=== PATIENT | male | born 1950 | race Caucasian/White ===

== ENCOUNTER 2016-09-17 11:36 | Emergency (ER) | payer OTHER ==
--- NOTE | 2016-09-17 12:07 | EDM.PDOC ---
<Monica Taylor - Last Filed: 09/17/16 13:23> ED HPI GENERAL MEDICAL PROBLEM - General Chief Complaint: Back Pain or Injury Stated Complaint: LEFT CHEST PAIN Time Seen by Provider: 09/17/16 12:07 Source of Information: Reports: Patient, Family History Limitations: Reports: Intoxication - History of Present Illness INITIAL COMMENTS - FREE TEXT/NARRATIVE: pt arrived with pain in the left shoulder. He is not having chest pain. He states this started very suddenly. He has not been sob. Onset: Today Duration: Hour(s):, Other ( sarted suddenly. ) Location: Reports: Other ( left shoulder blade area. ) Quality: Reports: Stabbing, Throbbing Severity: Moderate Associated Symptoms: Reports: Other ( left shoulder pain. ) Left Upper Back Pain Score (Numeric/FACES): 5 - Related Data Allergies Allergy/AdvReac Type Severity Reaction Status Date / Time gemfibrozil Allergy Unknown Rash Verified 09/17/16 11:57 niacin Allergy Unknown Rash Verified 09/17/16 11:57 [From Niaspan Extended-Release] hexachlorophene Allergy Rash Verified 09/17/16 11:57 [Hexachlorophene] oxycodone [Oxycodone] AdvReac Intermediate Vomiting Verified 09/17/16 11:57 codeine AdvReac Vomiting Verified 09/17/16 11:57 monosodium glutamate AdvReac Renal Verified 09/17/16 11:57 Failure Home Meds: Home Meds Allopurinol [Zyloprim] 300 mg PO BEDTIME 02/03/13 [History] Hypromellose [Gonak] 1 drop OP ASDIRECTED PRN 02/03/13 [History] Methimazole 2.5 mg PO BEDTIME 02/03/13 [History] [place]-3 Fatty Acids [Fish Oil] 1,000 mg PO BID 02/03/13 [History] Pantoprazole [Protonix] 40 mg PO DAILY 02/03/13 [History] traZODone HCl [Trazodone HCl] 300 mg PO BEDTIME 02/03/13 [History] Lutein 6 mg PO DAILY 11/24/13 [History] Hydrocodone/Acetaminophen [Hydrocodone-Acetaminophen 5-325] 1 each PO Q4HR PRN 11/30/13 [History] Terazosin HCl [Terazosin] 5 mg PO BEDTIME 11/30/13 [History] Ubidecarenone [Coenzyme Q10] 100 mg PO DAILY 07/27/14 [History] Acetaminophen [Tylenol] 625 mg PO BID 09/17/16 [History] Ondansetron [Zofran ODT] 4 mg PO DAILY 09/17/16 [History] Venlafaxine [Effexor] 75 mg PO DAILY 09/17/16 [History] Past Medical History Other Respiratory History: chronic sinusitis Other Genitourinary History: Stage 3 kidney disease Other Musculoskeletal History: arthritis of spine, dislocation of shoulder Other Neuro History: TBI 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 - Past Surgical History Other HEENT Surgeries/Procedures: metal in eyes Other GI Surgeries/Procedures: whipple procedure. Social & Family History - Tobacco Use Smoking Status *Q: Heavy Tobacco Smoker Years of Tobacco use: 50 Second Hand Smoke Exposure: Yes - Alcohol Use Days Per Week of Alcohol Use: 0 - Recreational Drug Use Recreational Drug Use: Yes Drug Use in Last 12 Months: Yes Recreational Drug Type: Reports: Marijuana/Hashish Recreational Drug Use Frequency: Weekly ED ROS GENERAL - Review of Systems Review Of Systems: See Below Constitutional: Reports: No Symptoms HEENT: Reports: No Symptoms Respiratory: Reports: No Symptoms, Pleuritic Chest Pain, Other (pt hurts back by the shoulder when she takes a deep breath. ) Cardiovascular: Reports: Other ( left shoulder pain. ) Endocrine: Reports: No Symptoms GI/Abdominal: Reports: Other ( left shoulder pain. ) : Reports: No Symptoms Musculoskeletal: Reports: Other (pt is very tender by the left [place] area. It appears to be below the shoulder blade. Pt has had a previous whipple. ) Skin: Reports: No Symptoms ED EXAM, UPPER BACK/NECK PAIN - Physical Exam Exam: See Below Text/Narrative:: Pt arrived having acute pain below the left shoulder blade. He hurts when he takes a deep breath. Exam Limited By: No Limitations General Appearance: Alert, Anxious, Moderate Distress Nose Exam: Normal Inspection Throat/Mouth Exam: Normal Inspection Head Exam: Atraumatic Neck Exam: Non-Tender Cardiovascular/Respiratory: Regular Rate, Rhythm GI/Abdominal: Soft, Non-Tender (Male) Exam: Deferred Rectal (Males) Exam: Deferred Extremities: Normal Capillary Refill Neurologic: Alert Psychiatric: Normal Affect Course - Vital Signs Last Recorded V/S: Last Vital Signs Temp 36.9 C 09/17/16 11:50 Pulse 69 09/17/16 13:52 Resp 16 09/17/16 13:52 BP 137/87 09/17/16 13:52 Pulse Ox 96 09/17/16 13:52 - Orders/Labs/Meds Labs: Laboratory Tests 09/17/16 09/17/16 09/17/16 Range/Units 11:49 11:49 11:49 WBC 9.3 (4.5-11.0) K/uL RBC 5.16 (4.30-5.90) M/uL Hgb 16.1 H D (12.0-15.0) g/dL Hct 46.2 (40.0-54.0) % MCV 90 (80-98) fL MCH 31 (27-31) pg MCHC 35 (32-36) % Plt Count 229 (150-400) K/uL Neut % (Auto) 68 H (36-66) % Lymph % (Auto) 21 L (24-44) % [place] % (Auto) 8 H (2-6) % Eos % (Auto) 2 (2-4) % Baso % (Auto) 1 (0-1) % Sodium 139 L (140-148) mmol/L Potassium 3.8 (3.6-5.2) mmol/L Chloride 103 (100-108) mmol/L Carbon Dioxide 30 (21-32) mmol/L Anion Gap 9.8 (5.0-14.0) mmol/L BUN 42 H (7-18) mg/dL Creatinine 2.1 H (0.8-1.3) mg/dL Est Cr Clr Drug Dosing 35.73 mL/min Estimated GFR (MDRD) 32 L (>60) Glucose 101 (74-106) mg/dL Calcium 8.3 L (8.5-10.1) mg/dL Total Bilirubin 0.3 (0.2-1.0) mg/dL AST 16 (15-37) U/L ALT 21 (12-78) U/L Alkaline Phosphatase 88 (46-116) U/L Creatine Kinase 74 (39-308) U/L Troponin I < 0.017 (0.000-0.056) ng/mL Total Protein 7.4 (6.4-8.2) g/dL Albumin 3.4 (3.4-5.0) g/dL Globulin 4.0 H (2.3-3.5) g/dL Albumin/Globulin Ratio 0.9 L (1.2-2.2) Lipase (73-393) U/L 05//17 Range/Units 12:35 WBC (4.5-11.0) K/uL RBC (4.30-5.90) M/uL Hgb (12.0-15.0) g/dL Hct (40.0-54.0) % MCV (80-98) fL MCH (27-31) pg MCHC (32-36) % Plt Count (150-400) K/uL Neut % (Auto) (36-66) % Lymph % (Auto) (24-44) % [place] % (Auto) (2-6) % Eos % (Auto) (2-4) % Baso % (Auto) (0-1) % Sodium (140-148) mmol/L Potassium (3.6-5.2) mmol/L Chloride (100-108) mmol/L Carbon Dioxide (21-32) mmol/L Anion Gap (5.0-14.0) mmol/L BUN (7-18) mg/dL Creatinine (0.8-1.3) mg/dL Est Cr Clr Drug Dosing mL/min Estimated GFR (MDRD) (>60) Glucose (74-106) mg/dL Calcium (8.5-10.1) mg/dL Total Bilirubin (0.2-1.0) mg/dL AST (15-37) U/L ALT (12-78) U/L Alkaline Phosphatase (46-116) U/L Creatine Kinase (39-308) U/L Troponin I (0.000-0.056) ng/mL Total Protein (6.4-8.2) g/dL Albumin (3.4-5.0) g/dL Globulin (2.3-3.5) g/dL Albumin/Globulin Ratio (1.2-2.2) Lipase 106 (73-393) U/L Meds: Medications Discontinued Medications Generic Name Dose Route Start Last Admin Trade Name Freq PRN Reason Stop Dose Admin Aspirin 324 mg 05/25/17 12:14 09/17/16 12:35 Aspirin PO 09/17/16 12:15 324 mg ONETIME ONE Administration Cyclobenzaprine HCl 10 mg 09/17/16 12:37 09/17/16 12:45 Flexeril PO 09/17/16 12:38 10 mg ONETIME ONE Administration Hydromorphone HCl 0.5 mg 09/17/16 12:39 09/17/16 12:46 Dilaudid IVPUSH 09/17/16 12:40 0.5 mg ONETIME ONE Administration - Re-Assessments/Exams Free Text/Narrative Re-Assessment/Exam: 09/17/16 13:23 pt has a right bundle branch block which is not new. His cardiac enzymes were normal. He has borderline kidney funtion which is not new. pt is feeling better after some pain meds. chest xray is unchanged. Departure - Departure Time of Disposition: 13:26 Disposition: Home, Self-Care 01 Condition: fair Clinical Impression: Pain aggravated by breathing - Discharge Information Referrals: PCP,None [Primary Care Provider] - Forms: ED Department Discharge Care Plan Goals: ice to the muscle area for 48 hours then moist heat, avoid pulling and lifting, flexeril 10 mg hs, norco 5/325 q6h prn for. Rtc if pain should change. <Malini Alexis - Last Filed: 09/18/16 14:50> ED Communication - Conversation Summary Radiology Reading Discussed with Radiologist: Yes Summary Comment: Radiology called to discuss right sided lung nodule on X-ray from 09/17. 10 mm in size. Recommend non-urgent follow up chest CT. I discussed this with Nura today. He will f/u at the [facility] for this. He was informed the [facility] can request his records from yesterday's visit for review. Patient reports he is feeling "much better" today. Malini Alexis, C D [employer], [employer]
[2016-09-17] MEDS ORDERED: Aspirin 81 MG Tab.Chew PO ONE (12:14)
[2016-09-17] MEDS ORDERED: Cyclobenzaprine 10 MG Tab PO ONE (12:37)
[2016-09-17] MEDS ORDERED: HYDROmorphone 0.5 MG/0.5 ML Syringe IVPUSH ONE (12:39)
--- NOTE | 2016-09-17 13:30 | CR ---
Heart size within normal limits. No focal consolidation. Nodular density within the right lung base. This is up to 10 mm. Recommend a nonurgent CT follow-up to exclude a nodule.
[2016-09-17 13:54] VITALS: BP 137/87
== END 2016-09-17 13:54 | disposition home or self-care (01) ==
LOC: JP.ED 11:36
DX: M25.512 Pain in left shoulder (principal); F17.200 Nicotine dependence, unspecified, uncomplicated; E11.9 Type 2 diabetes mellitus without complications; Z98.890 Other specified postprocedural states; Z88.8 Allergy status to other drugs, medicaments and biological substances; Z88.6 Allergy status to analgesic agent
CPT/HCPCS: 36415; 71010; 80053; 82550; 83690; 84484; 85025; 93005; 96374; 99284; A9270; J1170; 93010

== ENCOUNTER 2017-09-10 14:49 | Emergency (ER) | payer OTHER ==
[2017-09-10 15:19] VITALS: BP 134/77
--- NOTE | 2017-09-10 15:58 | EDM.PDOC ---
ED HPI GENERAL MEDICAL PROBLEM - General Chief Complaint: ENT Problem Stated Complaint: HEARING LOSS ALL OF A SUDDEN Time Seen by Provider: 09/10/17 15:45 Source of Information: Reports: Patient History Limitations: Reports: No Limitations - History of Present Illness INITIAL COMMENTS - FREE TEXT/NARRATIVE: 66 [place] patient presents with decreased hearing in his L ear. Has chronic hearing impairment anyway. Now since last night it is worse. He denies pain. Onset Date: 09/09/17 Duration: Hour(s):, Constant Location: Reports: Face (L ear) Quality: Reports: Other (no pain) Severity: Moderate Improves with: Reports: None Worsens with: Reports: None Context: Reports: Other (Has chronic bilat hearing impairment) Associated Symptoms: Reports: Other (slight dizziness) Treatments [employer] CHEF: Reports: Other (see below) (none) - Related Data Allergies Allergy/AdvReac Type Severity Reaction Status Date / Time gemfibrozil Allergy Unknown Rash Verified 09/17/16 11:57 niacin Allergy Unknown Rash Verified 09/17/16 11:57 [From Niaspan Extended-Release] hexachlorophene Allergy Rash Verified 09/17/16 11:57 [Hexachlorophene] oxycodone [Oxycodone] AdvReac Intermediate Vomiting Verified 09/17/16 11:57 codeine AdvReac Vomiting Verified 09/17/16 11:57 monosodium glutamate AdvReac Renal Verified 09/17/16 11:57 Failure Home Meds: Home Meds Allopurinol [Zyloprim] 300 mg PO BEDTIME 02/03/13 [History] Hypromellose [Gonak] 1 drop OP ASDIRECTED PRN 02/03/13 [History] Methimazole 2.5 mg PO BEDTIME 02/03/13 [History] [place]-3 Fatty Acids [Fish Oil] 1,000 mg PO BID 02/03/13 [History] Pantoprazole [Protonix] 40 mg PO DAILY 02/03/13 [History] traZODone HCl [Trazodone HCl] 300 mg PO BEDTIME 02/03/13 [History] Lutein 6 mg PO DAILY 11/24/13 [History] Hydrocodone/Acetaminophen [Hydrocodone-Acetaminophen 5-325] 1 each PO Q4HR PRN 11/30/13 [History] Terazosin HCl [Terazosin] 5 mg PO BEDTIME 11/30/13 [History] Ubidecarenone [Coenzyme Q10] 100 mg PO DAILY 07/27/14 [History] Acetaminophen [Tylenol] 625 mg PO BID 09/17/16 [History] Ondansetron [Zofran ODT] 4 mg PO DAILY 09/17/16 [History] Venlafaxine [Effexor] 75 mg PO DAILY 09/17/16 [History] Past Medical History HEENT History: Reports: Sinusitis Cardiovascular History: Reports: Syncope Other Respiratory History: chronic sinusitis Other Genitourinary History: Stage 3 kidney disease Other Musculoskeletal History: arthritis of spine, dislocation of shoulder Other Neuro History: TBI Psychiatric History: Reports: Bipolar, PTSD Other Endocrine/Metabolic History: diabetes insipidus Other Hematologic History: chronic lymes 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 - Infectious Disease History Infectious Disease History: Reports: Chicken Pox, Influenza, Measles, Mumps, Rubella - Past Surgical History Other HEENT Surgeries/Procedures: metal in eyes Other GI Surgeries/Procedures: whipple procedure. Social & Family History - Caffeine Use Caffeine Use: Reports: Coffee, Soda ED ROS ENT - Review of Systems Review Of Systems: See Below Constitutional: Reports: No Symptoms HEENT: Reports: Hearing Loss, Other (bilateral cerumen impactions. Quite hard of hearing. ). Denies: Ear Discharge, Ear Pain, Throat Pain, Throat Swelling Respiratory: Reports: No Symptoms Cardiovascular: Reports: No Symptoms Skin: Reports: No Symptoms Neurological: Reports: Dizziness (mild) Psychiatric: Reports: No Symptoms ED EXAM, ENT - Physical Exam Exam: See Below Exam Limited By: No Limitations General Appearance: Alert, WD/WN, No Apparent Distress Eye Exam: Bilateral Eye: Normal Inspection Ears: Normal External Exam, TM Obscured by Cerumen (bilateral), Cerumen Impaction. No: Hearing Grossly Normal, Auricular Tenderness, Canal Blood, Canal Discharge Nose: Normal Inspection Mouth/Throat: Normal Inspection Head: Atraumatic, Normocephalic Neck: Normal Inspection Extremities: Normal Inspection Neurological: Alert, Oriented, CN II-XII Intact, Normal Cognition Psychiatric: Normal Affect, Normal Mood Skin: Warm, Dry, Intact, Normal Color, No Rash Course - Vital Signs Text/Narrative:: Bilateral ear irrigation per RN, lots of wax removed with curette and irrigation. Hearing still not normal. Last Recorded V/S: Last Vital Signs Temp 35.6 C 09/10/17 15:18 Pulse 66 09/10/17 15:18 Resp 16 09/10/17 15:18 BP 134/77 09/10/17 15:18 Pulse Ox 95 09/10/17 15:18 - Orders/Labs/Meds Orders: Active Orders 24 hr Category Date Time Status Ear Irrigation [RC] ASDIRECTED Care 09/10/17 15:53 Active Departure - Departure Time of Disposition: 16:40 Disposition: Home, Self-Care 01 Condition: Good Clinical Impression: Impacted cerumen of both ears Eustachian tube dysfunction Qualifiers: Laterality: left Qualified Code(s): H69.82 - Other specified disorders of Eustachian tube, left ear - Discharge Information Referrals: PCP,None [Primary Care Provider] - Forms: ED Department Discharge - My Orders Last 24 Hours: My Active Orders 09/10/17 15:53 Ear Irrigation [RC] ASDIRECTED - Assessment/Plan Last 24 Hours: My Active Orders 09/10/17 15:53 Ear Irrigation [RC] ASDIRECTED
== END 2017-09-10 17:39 | disposition home or self-care (01) ==
LOC: JP.ED 14:49
DX: H61.23 Impacted cerumen, bilateral (principal); H69.82 Other specified disorders of Eustachian tube, left ear; N18.3 Chronic kidney disease, stage 3 (moderate); Z88.8 Allergy status to other drugs, medicaments and biological substances; Z88.5 Allergy status to narcotic agent; Z79.899 Other long term (current) drug therapy
CPT/HCPCS: 99283-25

== ENCOUNTER 2020-01-10 09:38 | Emergency (ER) | payer OTHER ==
[2020-01-10 10:11] VITALS: BP 144/77; PULSE 87
[2020-01-10] MEDS ORDERED: fentaNYL 100 MCG/2 ML SDV IM ONE (10:23)
--- NOTE | 2020-01-10 10:36 | EDM.PDOC ---
ED HPI GENERAL MEDICAL PROBLEM - General Chief Complaint: Back Pain or Injury Stated Complaint: BACK PAIN Time Seen by Provider: 01/10/20 10:13 Source of Information: Reports: Patient, Family, RN Notes Reviewed History Limitations: Reports: No Limitations - History of Present Illness INITIAL COMMENTS - FREE TEXT/NARRATIVE: 69-year-old gentleman presents emergency department with a complaint of upper back pain predominantly on the right side, he states he has been doing some gardening and wood splitting however this activity is not unusual for him he has developed the back pain over the last week or so it has not improved he has poor renal function so he has not taken any nonsteroidal anti-inflammatories he does use Tylenol but it he states it has not helped his pain. He has been using muscle relaxants with minimal relief. States he has shortness of breath with a deep breath because it hurts no nausea or vomiting no diaphoresis he has no known cardiac history. He does use tobacco products, pain has been ongoing for the last 5 days Middle Back Pain Score (Numeric/FACES): 2 - Related Data Allergies Allergy/AdvReac Type Severity Reaction Status Date / Time gemfibrozil Allergy Unknown Rash Verified 09/17/16 11:57 niacin Allergy Unknown Rash Verified 09/17/16 11:57 [From Niaspan Extended-Release] hexachlorophene Allergy Rash Verified 09/17/16 11:57 [Hexachlorophene] oxycodone [Oxycodone] AdvReac Intermediate Vomiting Verified 09/17/16 11:57 codeine AdvReac Vomiting Verified 09/17/16 11:57 monosodium glutamate AdvReac Renal Verified 09/17/16 11:57 Failure Home Meds: Home Meds [place]-3 Fatty Acids [Fish Oil] 1,000 mg PO BID 02/03/13 [History] Pantoprazole [Protonix] 40 mg PO DAILY 02/03/13 [History] allopurinoL [Zyloprim] 300 mg PO BEDTIME 02/03/13 [History] methIMAzole [Methimazole] 2.5 mg PO BEDTIME 02/03/13 [History] traZODone HCl [Trazodone HCl] 300 mg PO BEDTIME 02/03/13 [History] Terazosin HCl [Terazosin] 5 mg PO BEDTIME 11/30/13 [History] Ubidecarenone [Coenzyme Q10] 100 mg PO DAILY 07/27/14 [History] Ondansetron [Zofran ODT] 4 mg PO DAILY 09/17/16 [History] Venlafaxine [Effexor] 75 mg PO DAILY 09/17/16 [History] Cyclobenzaprine [Flexeril] 10 mg PO TID #30 tab 01/10/20 [Rx] Fluticasone Propionate [Flonase Allergy Relief] 1 - 2 spray NIRAV ASDIRECTED 01/10/20 [History] tiZANidine HCl [Tizanidine HCl] 2 mg PO DAILY PRN 01/10/20 [History] Past Medical History HEENT History: Reports: Sinusitis Cardiovascular History: Reports: Syncope Other Respiratory History: chronic sinusitis Other Genitourinary History: Stage 3 kidney disease Other Musculoskeletal History: arthritis of spine, dislocation of shoulder Other Neuro History: TBI Psychiatric History: Reports: Bipolar, PTSD Other Endocrine/Metabolic History: diabetes insipidus Other Hematologic History: chronic lymes 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 - Infectious Disease History Infectious Disease History: Reports: Chicken Pox, Influenza, Measles, Mumps, Rubella - Past Surgical History Other HEENT Surgeries/Procedures: metal in eyes Other GI Surgeries/Procedures: whipple procedure. Social & Family History - Tobacco Use Smoking Status *Q: Heavy Tobacco Smoker Years of Tobacco use: 60 Packs/Tins Daily: 1 - Caffeine Use Caffeine Use: Reports: Coffee - Recreational Drug Use Recreational Drug Use: Yes Recreational Drug Type: Reports: Marijuana/Hashish ED ROS GENERAL - Review of Systems Review Of Systems: See Below Constitutional: Reports: No Symptoms HEENT: Reports: No Symptoms Respiratory: Reports: Shortness of Breath (Only with a deep breath) Cardiovascular: Reports: No Symptoms GI/Abdominal: Reports: No Symptoms : Reports: No Symptoms Musculoskeletal: Reports: Back Pain Skin: Reports: No Symptoms (Midthoracic left side) ED EXAM, UPPER BACK/NECK PAIN - Physical Exam Exam: See Below Exam Limited By: No Limitations General Appearance: Alert, WD/WN, No Apparent Distress Cardiovascular/Respiratory: Regular Rate, Rhythm, No M/R/G, Normal Breath Sounds, No Respiratory Distress Back Exam: Normal Inspection, Decreased Range of Motion, Paraspinal Tenderness (T4 level). No: CVA Tenderness (R), CVA Tenderness (L), Vertebral Tenderness Course - Vital Signs Last Recorded V/S: Last Vital Signs Temp 96.8 F L 01/10/20 10:00 Pulse 87 01/10/20 10:00 Resp 16 01/10/20 10:00 BP 144/77 H 01/10/20 10:00 Pulse Ox 97 01/10/20 10:00 - Orders/Labs/Meds Orders: Active Orders 24 hr Category Date Time Status Cardiac Monitoring [RC] .As Directed Care 01/10/20 10:22 Active EKG Documentation Completion [RC] ASDIRECTED Care 01/10/20 10:22 Active EKG 12 Lead [EK] Stat Ther 01/10/20 10:22 Ordered Labs: Laboratory Tests 01/10/20 01/10/20 Range/Units 10:32 10:32 WBC 8.3 (4.5-11.0) K/uL RBC 5.14 (4.30-5.90) M/uL Hgb 15.3 H (12.0-15.0) g/dL Hct 45.4 (40.0-54.0) % MCV 88 (80-98) fL MCH 30 (27-31) pg MCHC 34 (32-36) % Plt Count 226 (150-400) K/uL Neut % (Auto) 71 H (36-66) % Lymph % (Auto) 17 L (24-44) % [place] % (Auto) 8 H (2-6) % Eos % (Auto) 2 (2-4) % Baso % (Auto) 1 (0-1) % Sodium 140 (140-148) mmol/L Potassium 4.0 (3.6-5.2) mmol/L Chloride 103 (100-108) mmol/L Carbon Dioxide 27 (21-32) mmol/L Anion Gap 10.2 (5.0-14.0) mmol/L BUN 49 H (7-18) mg/dL Creatinine 2.4 H (0.8-1.3) mg/dL Est Cr Clr Drug Dosing 29.57 mL/min Estimated GFR (MDRD) 27 L (>60) Glucose 104 (74-106) mg/dL Calcium 9.2 (8.5-10.1) mg/dL Total Bilirubin 0.3 (0.2-1.0) mg/dL AST 18 (15-37) U/L ALT 17 (12-78) U/L Alkaline Phosphatase 78 (46-116) U/L Troponin I < 0.017 (0.000-0.056) ng/mL Total Protein 7.9 (6.4-8.2) g/dL Albumin 3.6 (3.4-5.0) g/dL Globulin 4.3 H (2.3-3.5) g/dL Albumin/Globulin Ratio 0.8 L (1.2-2.2) Lipase 112 (73-393) U/L Meds: Medications Discontinued Medications Generic Name Dose Route Start Last Admin Trade Name Freq PRN Reason Stop Dose Admin Fentanyl 50 mcg 01/10/20 10:23 01/10/20 10:36 Sublimaze IM 01/10/20 10:24 50 mcg ONETIME ONE Administration Departure - Departure Time of Disposition: 11:39 Disposition: Home, Self-Care 01 Condition: Fair Clinical Impression: Strain of muscle at thorax level - Discharge Information Instructions: Muscle Strain, [id number] Referrals: Ana Garcia MD [Primary Care Provider] - Forms: ED Department Discharge Additional Instructions: Stop using your tizanidine, start the Flexeril 1 tablet up to 3 times a day as needed continue using Tylenol for muscle pain follow-up with your primary care in the next 3 to 5 days for reevaluation consider physical therapy your medications have been faxed to [facility] pharmacy in [place] Sepsis Event Note (ED) - Evaluation Sepsis Screening Result: No Definite Risk - Focused Exam Vital Signs: Vital Signs Temp Pulse Resp BP Pulse Ox 01/10/20 10:00 96.8 F L 87 16 144/77 H 97 - My Orders Last 24 Hours: My Active Orders 01/10/20 10:22 Cardiac Monitoring [RC] .As Directed EKG Documentation Completion [RC] ASDIRECTED EKG 12 Lead [EK] Stat - Assessment/Plan Last 24 Hours: My Active Orders 01/10/20 10:22 Cardiac Monitoring [RC] .As Directed EKG Documentation Completion [RC] ASDIRECTED EKG 12 Lead [EK] Stat Plan: Assessment Acuity = acute Site and laterality = thoracic muscle strain right side Etiology = probably related to working at home Manifestations = none Location of injury = Home Lab values = CBC unremarkable creatinine elevated 2.4 consistent with chronic renal failure stage G4, troponin was negative EKG demonstrates a sinus rhythm however he does have a right bundle branch block no old EKGs were available, chest x-ray shows no acute pulmonary process Plan He had good relief with the fentanyl provided in the emergency department, plan is to discharge home Flexeril 1 tablet p.o. 3 times daily as needed 10 mg dose total #30 faxed to [facility] pharmacy he will follow-up with his primary care in the next 3 to 5 days for reevaluation to consider physical therapy This note was dictated using [employer] voice recognition software please call with any questions on syntax or grammar.
--- NOTE | 2020-01-10 11:14 | CR ---
CHEST: 2 view CLINICAL HISTORY:Chest pain COMPARISON:August 2016 FINDINGS: The heart size, pulmonary vascularity and hilar structures are normal. No infiltrate effusion or pneumothorax is seen. There is mild prominence of the bronchial markings which may represents bronchial thickening. There are atherosclerotic changes in the aorta. IMPRESSION: No acute cardiopulmonary process. Perihilar bronchial thickening is similar to 2017
== END 2020-01-10 11:50 | disposition home or self-care (01) ==
LOC: JP.ED 09:38
DX: S29.012A Strain of muscle and tendon of back wall of thorax, initial encounter (principal); E23.2 Diabetes insipidus; N18.3 Chronic kidney disease, stage 3 (moderate); F17.210 Nicotine dependence, cigarettes, uncomplicated; Z79.899 Other long term (current) drug therapy; Z88.5 Allergy status to narcotic agent; Z88.8 Allergy status to other drugs, medicaments and biological substances; X50.9XXA Other and unspecified overexertion or strenuous movements or postures, initial encounter; Y93.H2 Activity, gardening and landscaping
CPT/HCPCS: 36415; 71046; 80053; 83690; 84484; 85025; 93005; 96372; 99284; J3010; 93010; 99283

== ENCOUNTER 2020-06-07 10:08 | Emergency (ER) | payer OTHER ==
--- NOTE | 2020-06-07 10:38 | EDM.PDOC ---
ED HPI GENERAL MEDICAL PROBLEM - General Chief Complaint: General Stated Complaint: REACTION TO COVID SHOT, POSSIBLE BLOCKAGE Time Seen by Provider: 06/07/20 10:20 Source of Information: Reports: Patient, Family History Limitations: Reports: No Limitations - History of Present Illness INITIAL COMMENTS - FREE TEXT/NARRATIVE: Luca is a 69-year-old male presenting to the ED with concerns of chest pain. The patient normally seeks his medical care at the [facility] but last night he began exhibiting symptoms of chest pressure, nausea, difficulty breathing and his called EMS. They arrived and assessed the patient doing a twelve-lead EKG finding him to be in a right bundle branch block. It is unclear why the patient was not brought in last evening but they did recommend that the patient follow-up for the bundle branch block with the [facility] this morning. Through the course of the night the patient's symptoms abated but he came in today after talking with the [facility] where he requested an EKG, enzyme check, and an echocardiogram and they instructed him to go to the nearest ER prompting the patient to come here. Of note, the patient received his second Covid vaccine yesterday afternoon with the Moderna vaccine and after several hours started to feel head congestion, headache, some body aches, diminished appetite and chills. He did experience ill effects of the first vaccine by report of his on day 5 post vaccination, he became ill for 3 days and would get out of bed. This was likely immune mediated response to the vaccine. 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 He denies any heart history. - Related Data Allergies Allergy/AdvReac Type Severity Reaction Status Date / Time gemfibrozil Allergy Unknown Rash Verified 06/07/20 10:26 niacin Allergy Unknown Rash Verified 06/07/20 10:26 [From Niaspan Extended-Release] hexachlorophene Allergy Rash Verified 06/07/20 10:26 [Hexachlorophene] oxycodone [Oxycodone] AdvReac Intermediate Vomiting Verified 06/07/20 10:26 codeine AdvReac Vomiting Verified 06/07/20 10:26 monosodium glutamate AdvReac Renal Verified 06/07/20 10:26 Failure Home Meds: Home Meds [place]-3 Fatty Acids [Fish Oil] 1,000 mg PO BID 02/03/13 [History] Pantoprazole [Protonix] 40 mg PO DAILY 02/03/13 [History] allopurinoL [Zyloprim] 300 mg PO BEDTIME 02/03/13 [History] methIMAzole [Methimazole] 2.5 mg PO BEDTIME 02/03/13 [History] traZODone HCl [Trazodone HCl] 300 mg PO BEDTIME 02/03/13 [History] Terazosin HCl [Terazosin] 5 mg PO BEDTIME 11/30/13 [History] Ubidecarenone [Coenzyme Q10] 100 mg PO DAILY 07/27/14 [History] Ondansetron [Zofran ODT] 4 mg PO DAILY 09/17/16 [History] Venlafaxine [Effexor] 75 mg PO DAILY 09/17/16 [History] Fluticasone Propionate [Flonase Allergy Relief] 1 - 2 spray NIRAV ASDIRECTED 01/10/20 [History] Past Medical History HEENT History: Reports: Sinusitis Cardiovascular History: Reports: Syncope Other Respiratory History: chronic sinusitis Other Genitourinary History: Stage 3 kidney disease Other Musculoskeletal History: arthritis of spine, dislocation of shoulder Other Neuro History: TBI Psychiatric History: Reports: Bipolar, PTSD Other Endocrine/Metabolic History: diabetes insipidus Other Hematologic History: chronic lymes 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 - Infectious Disease History Infectious Disease History: Reports: Chicken Pox, Influenza, Measles, Mumps, Ru dedrick - Past Surgical History Other HEENT Surgeries/Procedures: metal in eyes Other Cardiovascular Surgeries/Procedures: Echo done for fainting GI Surgical History: Reports: Appendectomy Other GI Surgeries/Procedures: whipple procedure. Musculoskeletal Surgical History: Reports: Arthroscopic Knee, Knee Replacement Other Musculoskeletal Surgeries/Procedures:: right Social & Family History - Caffeine Use Caffeine Use: Reports: Coffee ED ROS GENERAL - Review of Systems Review Of Systems: See Below Constitutional: Reports: Chills, Malaise HEENT: Reports: No Symptoms Respiratory: Reports: Shortness of Breath, Cough Cardiovascular: Reports: Chest Pain (Chest pressure last night that is subsided this morning.) Endocrine: Reports: No Symptoms GI/Abdominal: Reports: Nausea (Last night without vomiting that has subsequently subsided.) Musculoskeletal: Reports: No Symptoms Skin: Reports: No Symptoms Neurological: Reports: No Symptoms Psychiatric: Reports: No Symptoms Hematologic/Lymphatic: Reports: No Symptoms Immunologic: Reports: No Symptoms ED EXAM, GENERAL - Physical Exam Exam: See Below Exam Limited By: No Limitations General Appearance: Alert, No Apparent Distress Eye Exam: Bilateral Eye: EOMI, PERRL Head: Atraumatic, Normocephalic Neck: Normal Inspection, Supple, Non-Tender, Full Range of Motion. No: Lymphadenopathy (R), Lymphadenopathy (L) Respiratory/Chest: No Respiratory Distress, Lungs Clear, Normal Breath Sounds, No Accessory Muscle Use, Chest Non-Tender Cardiovascular: Normal Peripheral Pulses, Regular Rate, Rhythm, No Murmur Peripheral Pulses: 2+: Radial (L), Radial (R), Posterior Tibial (L), Posterior Tibial (R) GI/Abdominal: Normal Bowel Sounds, Soft, Non-Tender Back Exam: Normal Inspection, Full Range of Motion Extremities: Normal Inspection, Normal Range of Motion, Non-Tender, No Pedal Edema, Normal Capillary Refill Neurological: Alert, Oriented, Normal Cognition, No Motor/Sensory Deficits Psychiatric: Normal Affect, Normal Mood Skin Exam: Warm, Dry, Intact Lymphatic: No Adenopathy #1 Interpretation EKG Date: 06/07/20 Time: 10:48 Rhythm: NSR Rate (Beats/Min): 79 [place]: Normal P-Wave: Present (Prolonged IN interval at 216 ms) QRS: RBBB ST-T: Normal QT: Normal Comparison: Change From Previous EKG (No change when compared to previous EKG on 01/10/2020.) Course - Vital Signs Last Recorded V/S: Last Vital Signs Temp 36.6 C 06/07/20 10:36 Pulse 79 06/07/20 11:14 Resp 12 06/07/20 11:14 BP 129/66 06/07/20 11:14 Pulse Ox 96 06/07/20 11:14 - Orders/Labs/Meds Orders: Active Orders 24 hr Category Date Time Status EKG Documentation Completion [RC] ASDIRECTED Care 06/07/20 10:19 Active EKG 12 Lead [EK] Routine Ther 06/07/20 10:17 Ordered Labs: Laboratory Tests 06/07/20 06/07/20 06/07/20 Range/Units 10:45 10:45 10:45 WBC 8.1 (4.5-11.0) K/uL RBC 5.15 (4.30-5.90) M/uL Hgb 15.4 H (12.0-15.0) g/dL Hct 45.8 (40.0-54.0) % MCV 89 (80-98) fL MCH 30 (27-31) pg MCHC 34 (32-36) % Plt Count 243 (150-400) K/uL Neut % (Auto) 66 (36-66) % Lymph % (Auto) 20 L (24-44) % [place] % (Auto) 10 H (2-6) % Eos % (Auto) 3 (2-4) % Baso % (Auto) 1 (0-1) % PT 10.7 (9.5-12.0) sec INR 0.98 (0.80-1.20) Sodium 141 (140-148) mmol/L Potassium 3.9 (3.6-5.2) mmol/L Chloride 104 (100-108) mmol/L Carbon Dioxide 26 (21-32) mmol/L Anion Gap 10.6 (5.0-14.0) mmol/L BUN 50 H (7-18) mg/dL Creatinine 2.1 H (0.8-1.3) mg/dL Est Cr Clr Drug Dosing 33.80 mL/min Estimated GFR (MDRD) 31 L (>60) Glucose 117 H (74-106) mg/dL Calcium 9.0 (8.5-10.1) mg/dL Total Bilirubin 0.3 (0.2-1.0) mg/dL AST 15 (15-37) U/L ALT 23 (12-78) U/L Alkaline Phosphatase 83 (46-116) U/L Troponin I < 0.017 (0.000-0.056) ng/mL Total Protein 7.2 (6.4-8.2) g/dL Albumin 3.3 L (3.4-5.0) g/dL Globulin 3.9 H (2.3-3.5) g/dL Albumin/Globulin Ratio 0.9 L (1.2-2.2) - Radiology Interpretation Free Text/Narrative:: Chest x-ray was reviewed as well as the report showing chronic bronchitis changes. No apparent changes from previous chest x-ray. - Re-Assessments/Exams Free Text/Narrative Re-Assessment/Exam: 06/07/20 11:25 I reviewed the patient's EKG which remains unchanged from 01/10/2020, labs are unremarkable for any acute ischemia, however, the patient does have evidence for stage IIIb chronic renal failure with a creatinine clearance of 38 and a creatinine of 2.1. Troponin is negative at less than 0.017. Chest x-ray also remains unchanged from previous. His symptoms are likely due to his recent COVID-19 vaccination especially since this was the second dose of the Moderna vaccine. I would recommend that he use NSAIDs or Tylenol if any recurrence of symptoms. Indications return to the ED were discussed with the patient he was discharged in satisfactory condition. Departure - Departure Time of Disposition: 11:28 Disposition: Home, Self-Care 01 Condition: Good Clinical Impression: Status post administration of all doses of COVID-19 vaccine series, Cough, Right bundle branch block Chest pain Qualifiers: Chest pain type: unspecified Qualified Code(s): R07.9 - Chest pain, unspecified Chronic renal failure, stage 3 (moderate) Qualifiers: Chronic kidney disease stage 3 subtype: stage 3b (GFR 30-44) Qualified Code(s): N18.32 - Chronic kidney disease, stage 3b - Discharge Information *PRESCRIPTION DRUG MONITORING PROGRAM REVIEWED*: Not Applicable *COPY OF PRESCRIPTION DRUG MONITORING REPORT IN PATIENT IRIS: Not Applicable Instructions: Nonspecific Chest Pain, Adult, Right Bundle Branch Block, Cough, Adult, Chronic Kidney Disease, Adult, [id number] Referrals: Ana Garcia MD [Primary Care Provider] - Forms: ED Department Discharge Care Plan Goals: Your assessment today shows that your symptoms are most likely related to your COVID-19 vaccination. There is no evidence for any heart damage based on your cardiac enzymes. Your EKG and remains unchanged from 01/10/2020. Your chest x- ray also remains unchanged from your previous chest x-ray. These are all reassuring findings. As your symptoms have abated this is a good sign but you can still use Tylenol or ibuprofen should you have recurrence of the symptoms which is likely given your immune system's response to the vaccination. Sepsis Event Note (ED) - Focused Exam Vital Signs: Vital Signs Temp Pulse Resp BP Pulse Ox 06/07/20 11:14 79 12 129/66 96 06/07/20 10:36 36.6 C 90 14 128/79 96 - My Orders Last 24 Hours: My Active Orders 06/07/20 10:17 EKG 12 Lead [EK] Routine 06/07/20 10:19 EKG Documentation Completion [RC] ASDIRECTED - Assessment/Plan Last 24 Hours: My Active Orders 06/07/20 10:17 EKG 12 Lead [EK] Routine 06/07/20 10:19 EKG Documentation Completion [RC] ASDIRECTED
--- NOTE | 2020-06-07 11:14 | CR ---
CHEST: 2 view CLINICAL HISTORY:Chest pain COMPARISON:December 2019 FINDINGS: Heart size and pulmonary vascular normal. Prescribed aorta. There is perihilar bronchial thickening. This is also seen in December 2019 and 2016. No infiltrates are seen. IMPRESSION: No acute cardiopulmonary process. Chronic perihilar bronchial thickening
[2020-06-07 11:16] VITALS: BP 129/66; PULSE 79
== END 2020-06-07 11:57 | disposition home or self-care (01) ==
LOC: JP.ED 10:08
DX: R07.9 Chest pain, unspecified (principal); N18.32 Chronic kidney disease, stage 3b; E23.2 Diabetes insipidus; R05 Cough; I45.10 Unspecified right bundle-branch block; Z88.8 Allergy status to other drugs, medicaments and biological substances; Z88.5 Allergy status to narcotic agent; Z79.899 Other long term (current) drug therapy; T50.B95A Adverse effect of other viral vaccines, initial encounter
CPT/HCPCS: 36415; 71046; 71046-26; 80053; 84484; 85025; 85610; 93005; 93010; 99284; 99285-25

== ENCOUNTER 2020-07-14 12:19 | Emergency (ER) | payer OTHER, MEDICARE ==
[2020-07-14 12:45] VITALS: BP 140/87; PULSE 94
--- NOTE | 2020-07-14 12:51 | EDM.PDOC ---
ED HPI GENERAL MEDICAL PROBLEM - General Chief Complaint: Wound Recheck Stated Complaint: RIGHT LOWER LEG PUNCH BIOSPY Time Seen by Provider: 07/14/20 12:35 Source of Information: Reports: Patient, Family, Old Records History Limitations: Reports: No Limitations - History of Present Illness INITIAL COMMENTS - FREE TEXT/NARRATIVE: 69 [facility] [place] [facility] patient had a biopsy of his lower, anterior, right richards area recently there. Starting yesterday he noticed surrounding redness and increased drainage. No fever or chills. Here with his . Onset: Gradual Onset Date: 07/13/20 Duration: Day(s): (1+), Getting Worse Location: Reports: Lower Extremity, Right Quality: Reports: Dull Severity: Mild Improves with: Reports: None Worsens with: Reports: Other (time) Context: Reports: Other (See HPI) Associated Symptoms: Reports: No Other Symptoms. 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) - Related Data Allergies Allergy/AdvReac Type Severity Reaction Status Date / Time gemfibrozil Allergy Unknown Rash Verified 07/14/20 12:36 niacin Allergy Unknown Rash Verified 07/14/20 12:36 [From Niaspan Extended-Release] hexachlorophene Allergy Rash Verified 07/14/20 12:36 [Hexachlorophene] oxycodone [Oxycodone] AdvReac Intermediate Vomiting Verified 07/14/20 12:36 codeine AdvReac Vomiting Verified 07/14/20 12:36 monosodium glutamate AdvReac Renal Verified 07/14/20 12:36 Failure Home Meds: Home Meds [place]-3 Fatty Acids [Fish Oil] 1,000 mg PO BID 02/03/13 [History] allopurinoL [Zyloprim] 300 mg PO BEDTIME 02/03/13 [History] methIMAzole [Methimazole] 2.5 mg PO BEDTIME 02/03/13 [History] traZODone HCl [Trazodone HCl] 300 mg PO BEDTIME 02/03/13 [History] Terazosin HCl [Terazosin] 5 mg PO BEDTIME 11/30/13 [History] Ubidecarenone [Coenzyme Q10] 100 mg PO DAILY 07/27/14 [History] Venlafaxine [Effexor] 75 mg PO DAILY 09/17/16 [History] Fluticasone Propionate [Flonase Allergy Relief] 1 - 2 spray NIRAV ASDIRECTED 01/10/20 [History] Sulfamethoxazole/Trimethoprim [Bactrim Ds Tablet] 1 each PO Q12H #15 tablet 07/14/20 [Rx] Past Medical History HEENT History: Reports: Sinusitis Cardiovascular History: Reports: Syncope Other Respiratory History: chronic sinusitis Other Genitourinary History: Stage 3 kidney disease Other Musculoskeletal History: arthritis of spine, dislocation of shoulder Other Neuro History: TBI Psychiatric History: Reports: Bipolar, PTSD Other Endocrine/Metabolic History: diabetes insipidus Other Hematologic History: chronic lymes 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 - Infectious Disease History Infectious Disease History: Reports: Chicken Pox, Influenza, Measles, Mumps, Rubella - Past Surgical History Other HEENT Surgeries/Procedures: metal in eyes Other Cardiovascular Surgeries/Procedures: Echo done for fainting GI Surgical History: Reports: Appendectomy Other GI Surgeries/Procedures: whipple procedure. Musculoskeletal Surgical History: Reports: Arthroscopic Knee, Knee Replacement Other Musculoskeletal Surgeries/Procedures:: right Social & Family History - Caffeine Use Caffeine Use: Reports: Coffee ED ROS GENERAL - Review of Systems Review Of Systems: See Below Constitutional: Reports: No Symptoms Skin: Reports: Erythema (surrounding biopsy site. ), Wound (punch biopsy) Neurological: Reports: No Symptoms ED EXAM, SKIN/RASH Exam: See Below Exam Limited By: No Limitations General Appearance: Alert, WD/WN, No Apparent Distress Extremities: Increased Warmth (minimal), Redness (around biopsy site of RLE about 2.5-3 cm in all directions. ), Other (some serous and ? purulent drainage from biopsy site noted. ) Neurological: Alert, Oriented, CN II-XII Intact, Normal Cognition, No Motor/Sensory Deficits Course - Vital Signs Last Recorded V/S: Last Vital Signs Temp 36.7 C 07/14/20 12:43 Pulse 94 07/14/20 12:43 Resp 16 07/14/20 12:43 BP 140/87 07/14/20 12:43 Pulse Ox 97 07/14/20 12:43 Departure - Departure Time of Disposition: 12:49 Disposition: Home, Self-Care 01 Condition: Fair Clinical Impression: Wound infection - Discharge Information *PRESCRIPTION DRUG MONITORING PROGRAM REVIEWED*: Not Applicable *COPY OF PRESCRIPTION DRUG MONITORING REPORT IN PATIENT IRIS: Not Applicable Prescriptions: Sulfamethoxazole/Trimethoprim [Bactrim Ds Tablet] 1 each PO Q12H #15 tablet Referrals: Ana Garcia MD [Primary Care Provider] - Additional Instructions: Take TMP/SMZ every 12 hrs. Elevate leg above your heart to reduce swelling and promote drainage via lymphatics. Clean area regularly with soap and water. F/U with your doctor later this week for recheck. Return here as needed. Sepsis Event Note (ED) - Evaluation Sepsis Screening Result: No Definite Risk - Focused Exam Vital Signs: Vital Signs Temp Pulse Resp BP Pulse Ox 07/14/20 12:43 36.7 C 94 16 140/87 97 07/14/20 12:36 36.7 C 94 16 140/87 97
== END 2020-07-14 13:22 | disposition home or self-care (01) ==
LOC: JP.ED 12:19
DX: T81.49XA Infection following a procedure, other surgical site, initial encounter (principal); N18.30 Chronic kidney disease, stage 3 unspecified; Z88.1 Allergy status to other antibiotic agents; Z88.8 Allergy status to other drugs, medicaments and biological substances; Z88.5 Allergy status to narcotic agent; Z79.899 Other long term (current) drug therapy
CPT/HCPCS: 99283

== ENCOUNTER 2021-02-09 23:53 | Emergency (ER) | payer OTHER, MEDICARE ==
[2021-02-09] MEDS ORDERED: HYDROmorphone 0.5 MG/0.5 ML Syringe IVPUSH ONE (23:58)
[2021-02-09] MEDS ORDERED: Methocarbamol 500 MG Tab PO ONE (23:58)
[2021-02-10] MEDS ORDERED: Sodium Chloride 0.9% 10 ML Syringe FLUSH PRN (00:07)
--- NOTE | 2021-02-10 00:08 | EDM.PDOC ---
ED HPI GENERAL MEDICAL PROBLEM - General Chief Complaint: Back Pain or Injury Stated Complaint: MEDICAL VIA IONIA Time Seen by Provider: 02/09/21 23:55 Source of Information: Reports: Patient, EMS History Limitations: Reports: No Limitations - History of Present Illness INITIAL COMMENTS - FREE TEXT/NARRATIVE: Luca is a 70-year-old male presenting to the ED via [facility] for evaluation of acute onset of low back pain causing left-sided sciatica. The patient was in his usual state of health when he rolled over in bed tonight causing a loud pop followed by sharp pain in the back with pain radiating down the posterior left leg. The patient's been unable to bear weight on the left leg since this occurred. He has a history of a low back injury 40 years ago resulting in musc le spasm. The patient works as a [employer]. He denies any heavy lifting recently. He said tonight he had excruciating pain starting over his left SI joint going down the left leg. He denies any numbness or tingling in the perineum. He has had no loss of bowel or bladder control. He has a great deal of difficulty straightening the left leg because of pain and spasm. He does report having some numbness in the left leg. Lower Back Pain Score (Numeric/FACES): 10 - Related Data Allergies Allergy/AdvReac Type Severity Reaction Status Date / Time gemfibrozil Allergy Unknown Rash Verified 02/10/21 00:27 niacin Allergy Unknown Rash Verified 02/10/21 00:27 [From Niaspan Extended-Release] hexachlorophene Allergy Rash Verified 02/10/21 00:27 [Hexachlorophene] oxycodone [Oxycodone] AdvReac Intermediate Vomiting Verified 02/10/21 00:27 codeine AdvReac Vomiting Verified 02/10/21 00:27 monosodium glutamate AdvReac Renal Verified 02/10/21 00:27 Failure Home Meds: Home Meds [place]-3 Fatty Acids [Fish Oil] 1,000 mg PO BID 02/03/13 [History] allopurinoL [Zyloprim] 300 mg PO BEDTIME 02/03/13 [History] methIMAzole [Methimazole] 2.5 mg PO BEDTIME 02/03/13 [History] traZODone HCl [Trazodone HCl] 300 mg PO BEDTIME 02/03/13 [History] Terazosin HCl [Terazosin] 5 mg PO BEDTIME 11/30/13 [History] Ubidecarenone [Coenzyme Q10] 100 mg PO DAILY 07/27/14 [History] Venlafaxine [Effexor] 75 mg PO DAILY 09/17/16 [History] Fluticasone Propionate [Flonase Allergy Relief] 1 - 2 spray NIRAV ASDIRECTED 01/10/20 [History] methocarbamoL [Methocarbamol] 750 mg PO QID PRN #28 tablet 02/10/21 [Rx] Past Medical History HEENT History: Reports: Sinusitis Cardiovascular History: Reports: Syncope Other Respiratory History: chronic sinusitis Other Genitourinary History: Stage 3 kidney disease Other Musculoskeletal History: arthritis of spine, dislocation of shoulder Other Neuro History: TBI Psychiatric History: Reports: Bipolar, PTSD Other Endocrine/Metabolic History: diabetes insipidus Other Hematologic History: chronic lymes 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 - Infectious Disease History Infectious Disease History: Reports: Chicken Pox, Influenza, Measles, Mumps, Rubella - Past Surgical History Other HEENT Surgeries/Procedures: metal in eyes Other Cardiovascular Surgeries/Procedures: Echo done for fainting GI Surgical History: Reports: Appendectomy Other GI Surgeries/Procedures: whipple procedure. Musculoskeletal Surgical History: Reports: Arthroscopic Knee, Knee Replacement Other Musculoskeletal Surgeries/Procedures:: right Social & Family History - Caffeine Use Caffeine Use: Reports: Coffee ED ROS GENERAL - Review of Systems Review Of Systems: See Below Constitutional: Reports: No Symptoms Respiratory: Reports: No Symptoms Cardiovascular: Reports: No Symptoms GI/Abdominal: Reports: No Symptoms : Reports: No Symptoms Musculoskeletal: Reports: Back Pain (Low back pain radiating down the posterior left leg), Muscle Pain Skin: Reports: No Symptoms Neurological: Reports: Numbness (Left lower extremity), Difficulty Walking, Weakness (Left lower extremity) Psychiatric: Reports: Anxiety Hematologic/Lymphatic: Reports: No Symptoms ED EXAM,LOWER BACK PAIN/INJURY - Physical Exam Exam: See Below Exam Limited By: No Limitations General Appearance: Alert, Moderate Distress Eye Exam: Bilateral Eye: EOMI, PERRL Head: Atraumatic, Normocephalic Neck: Normal Inspection, Supple Respiratory/Chest: No Respiratory Distress, Rhonchi (Diffuse scattered rhonchi) Cardiovascular: Normal Peripheral Pulses, Regular Rate, Rhythm, No Murmur GI/Abdominal: Normal Bowel Sounds, Soft, Non-Tender Back Exam: Muscle Spasm (Left paraspinal muscle spasm), Paraspinal Tenderness, Other (Tenderness to palpation over the left SI joint that increases with pressing on the sacroiliac crests). No: Vertebral Tenderness Extremities: Limited Range of Motion (Left leg due to pain), Other (Positive leg raise on the left at 30 degrees. Positive leg raise on the right at 30 degrees) Neurological: Alert, Oriented x 3, Abnormal Light Touch (Decreased to light touch sensation on the left lower extremity), Abnormal Motor (Mild decrease in ankle extension on the left) Skin Exam: Warm, Dry Course - Vital Signs Last Recorded V/S: Last Vital Signs Temp 36.3 C 02/10/21 00:30 Pulse 77 02/10/21 01:45 Resp 19 02/10/21 01:45 BP 140/75 02/10/21 01:45 Pulse Ox 95 02/10/21 01:45 - Orders/Labs/Meds Orders: Active Orders 24 hr Category Date Time Status CORONAVIRUS COVID-19 RAPID [MOLEC] Urgent Lab 02/10/21 01:37 Ordered Sodium Chloride 0.9% [Saline Flush] Med 02/10/21 00:07 Active 10 ml FLUSH ASDIRECTED PRN Saline Lock Insert [OM.PC] Routine Oth 02/10/21 00:07 Ordered Medication Orders Sodium Chloride (Sodium Chloride 0.9% 10 Ml Syringe) 10 ml FLUSH ASDIRECTED PRN PRN Reason: Keep Vein Open Last Admin: 02/10/21 00:35 Dose: 10 ml Documented by: CHERRIE Meds: Medications Generic Name Dose Route Start Last Admin Trade Name Freq PRN Reason Stop Dose Admin Sodium Chloride 10 ml 02/10/21 00:07 02/10/21 00:35 Sodium Chloride 0.9% 10 Ml Syringe FLUSH 10 ml ASDIRECTED PRN Administration Keep Vein Open Discontinued Medications Generic Name Dose Route Start Last Admin Trade Name Freq PRN Reason Stop Dose Admin Hydromorphone HCl 0.5 mg 02/09/21 23:58 02/10/21 00:35 Hydromorphone 0.5 Mg/0.5 Ml Syringe IVPUSH 02/09/21 23:59 0.5 mg ONETIME ONE Administration Methocarbamol 1,000 mg 02/09/21 23:58 02/10/21 00:35 Methocarbamol 500 Mg Tab PO 02/09/21 23:59 1,000 mg ONETIME ONE Administration - Radiology Interpretation Free Text/Narrative:: I reviewed the CT of the lumbar spine without contrast images as well as the report. The report is as follows: FINDINGS: Vertebral alignment: Levoscoliosis. Vertebrae: There are no fractures or suspicious bony lesions. Discs and facet joints: Moderate multilevel degenerative disc and facet changes. Extraspinal findings: Moderate distention of the urinary bladder. Enlarged prostate gland. 2.2 cm mass on the posterior aspect of the left kidney measuring 37 Hounsfield units in density. Simple cysts on both kidneys. Infrarenal abdominal aortic aneurysm measuring 3.1 cm. IMPRESSION: No acute fracture or subluxation. Moderate multilevel degenerative disc and facet changes. Indeterminate mass on the left kidney. Recommend nonemergent renal CT for further characterization. Infrarenal abdominal aortic aneurysm. Enlarged prostate gland. Please note that all CT scans at this facility use dose modulation, iterative reconstruction, and/or weight-based dosing when appropriate to reduce radiation dose to as low as reasonably achievable. Dictated by Anabella Loredo MD @ 02/10/2021 1:23:02 AM - Re-Assessments/Exams Free Text/Narrative Re-Assessment/Exam: 02/10/21 01:39 has significant chronic degenerative disc disease with several discs ruptured causing vacuum sign. He also has significant degenerative spine disease with osteoarthritis causing impingement on the neural foramen. There is nothing acute in his exam today. He does have a left renal mass and a small caliber abdominal aortic aneurysm. Patient is aware of both of these from previous work-ups. It does appear that he has significant left lower extremity weakness and numbness which she reports has been new since the incident tonight. He did get methocarbamol 1000 mg by mouth which has eased his symptoms somewhat, however, he still having weakness and I am quite concerned that he is a high fall risk. The patient states that he has crutches at home but again I am concerned about his ability to get around. Furthermore, he does need to have some intervention done on his back, however, I am not sure how acutely this needs to be done. He does not have anything for cauda equina syndrome. I will discussed the case with the [facility] in [place] to arrange for transfer and further work-up including assessment by physical therapy and Occupational Therapy. 02/10/21 02:20 after further discussion, the patient would just assume go home and follow-up with the [facility] in [place]. We will discharge him on methocarbamol and tramadol. Indications to return to the ED were discussed. I did discuss this with his as well who will make arrangements with the [facility] in [place] tomorrow. Departure - Departure Time of Disposition: 02:09 Disposition: Home, Self-Care 01 Clinical Impression: Degenerative disc disease, lumbar, Osteoarthritis of spine with radiculopathy, lumbar region, Weakness of left lower extremity, Numbness of left lower extremity - Discharge Information Instructions: Degenerative Disk Disease, Spondylolysis, Muscle Strain, [id number] Referrals: Ana Garcia MD [Primary Care Provider] - Forms: ED Department Discharge Care Plan Goals: I recommend that she follow-up with the [facility] in [place] as soon as possible for evaluation of your back pain. Your work-up today has demonstrated significant multilevel degenerative disc disease and significant osteoarthritis which in combination with muscle spasm is causing compression of the nerves going down your left leg resulting in weakness and numbness in the leg. This is something that will lead to degeneration of your left leg and ultimately could l ead to the loss of mobility. I am sending you home with a prescription for methocarbamol 750 mg that you may take up to 4 times a day for muscle spasm and an [facility] prescription for tramadol for pain. Sepsis Event Note (ED) - Focused Exam Vital Signs: Vital Signs Temp Pulse Resp BP Pulse Ox 02/10/21 01:45 77 19 140/75 95 02/10/21 00:30 36.3 C 75 18 145/74 H 96 - Problem List & Annotations (1) Degenerative disc disease, lumbar SNOMED Code(s): 08307061 Code(s): M51.36 - OTHER INTERVERTEBRAL DISC DEGENERATION, LUMBAR REGION Status: Acute Priority: Medium Current Visit: Yes (2) Osteoarthritis of spine with radiculopathy, lumbar region SNOMED Code(s): 106704214, 762054886, 497424672, 462113072 Code(s): M47.26 - OTHER SPONDYLOSIS WITH RADICULOPATHY, LUMBAR REGION Status: Acute Priority: Medium Current Visit: Yes (3) Weakness of left lower extremity SNOMED Code(s): 759471550, 017864822 Code(s): R29.898 - OTH SYMPTOMS AND SIGNS INVOLVING THE MUSCULOSKELETAL SYSTEM Status: Acute Priority: Medium Current Visit: Yes (4) Numbness of left lower extremity SNOMED Code(s): 173596340 Code(s): R20.0 - ANESTHESIA OF SKIN Status: Acute Priority: Medium Current Visit: Yes - Problem List Review Problem List Initiated/Reviewed/Updated: Yes - My Orders Last 24 Hours: My Active Orders 02/10/21 00:07 Sodium Chloride 0.9% [Saline Flush] 10 ml FLUSH ASDIRECTED PRN Saline Lock Insert [OM.PC] Routine 02/10/21 01:37 CORONAVIRUS COVID-19 RAPID [MOLEC] Urgent - Assessment/Plan Last 24 Hours: My Active Orders 02/10/21 00:07 Sodium Chloride 0.9% [Saline Flush] 10 ml FLUSH ASDIRECTED PRN Saline Lock Insert [OM.PC] Routine 02/10/21 01:37 CORONAVIRUS COVID-19 RAPID [MOLEC] Urgent
--- NOTE | 2021-02-10 01:24 | CRLCT ---
For Patients: As a result of the Century Cures Act, medical imaging exams and procedure reports are released immediately into your electronic medical record. You may view this report before your referring provider. If you have questions, please contact your health care provider. INDICATION: Acute low back pain with right-sided sciatica TECHNIQUE: CT lumbar spine without contrast. COMPARISON: None FINDINGS: Vertebral alignment: Levoscoliosis. Vertebrae: There are no fractures or suspicious bony lesions. Discs and facet joints: Moderate multilevel degenerative disc and facet changes. Extraspinal findings: Moderate distention of the urinary bladder. Enlarged prostate gland. 2.2 cm mass on the posterior aspect of the left kidney measuring 37 Hounsfield units in density. Simple cysts on both kidneys. Infrarenal abdominal aortic aneurysm measuring 3.1 cm. IMPRESSION: No acute fracture or subluxation. Moderate multilevel degenerative disc and facet changes. Indeterminate mass on the left kidney. Recommend nonemergent renal CT for further characterization. Infrarenal abdominal aortic aneurysm. Enlarged prostate gland. Please note that all CT scans at this facility use dose modulation, iterative reconstruction, and/or weight-based dosing when appropriate to reduce radiation dose to as low as reasonably achievable. Dictated by Anabella Loredo MD @ 02/10/2021 1:23:02 AM (Electronically Signed)
[2021-02-10 02:05] VITALS: BP 140/75; PULSE 77
== END 2021-02-10 03:00 | disposition home or self-care (01) ==
LOC: JP.ED 23:53
DX: M51.16 Intervertebral disc disorders with radiculopathy, lumbar region (principal); M47.26 Other spondylosis with radiculopathy, lumbar region; R20.0 Anesthesia of skin; Z88.5 Allergy status to narcotic agent; Z88.8 Allergy status to other drugs, medicaments and biological substances; Z79.899 Other long term (current) drug therapy; Z90.49 Acquired absence of other specified parts of digestive tract
CPT/HCPCS: 72131; 87635; 96374; 99284; A9270; J1170; U0002

== ENCOUNTER 2022-06-21 09:55 | Emergency (ER) | payer OTHER, MEDICARE ==
[2022-06-21 10:34] VITALS: BP 144/81; PULSE 95
[2022-06-21] MEDS ORDERED: Ketorolac 30 MG/ML SDV IM ONE (10:58)
[2022-06-21] MEDS ORDERED: Methocarbamol 500 MG Tab PO ONE (11:00)
== END 2022-06-21 12:33 | disposition home or self-care (01) ==
LOC: JP.ED 09:55
DX: M54.6 Pain in thoracic spine (principal); E11.22 Type 2 diabetes mellitus with diabetic chronic kidney disease; N18.30 Chronic kidney disease, stage 3 unspecified; Z88.5 Allergy status to narcotic agent; Z88.1 Allergy status to other antibiotic agents; Z88.8 Allergy status to other drugs, medicaments and biological substances; Z72.0 Tobacco use; X50.0XXA Overexertion from strenuous movement or load, initial encounter
CPT/HCPCS: 71046; 96372; 99283; A9270; J1885

== ENCOUNTER 2024-08-02 09:56 | Emergency (ER) | payer OTHER, MEDICARE ==
[2024-08-02 10:56] LABS: BASE EXCESS ARTERIAL 2.1 mm/L; BICARBONATE,ARTERIAL 24.4 mmol/L (22.0-26.0); CARBOXYHEMOGLOBIN 4.7 % (0.0-1.6); METHEMOGLOBIN 0.8 %; O2 SATURATION ARTERIAL 96.4 % (95.0-98.0); OXYHEMOGLOBIN 91.1 %; PCO2 ARTERIAL 32.6 mmHg (35.0-42.0); PO2 ARTERIAL 76.3 mmHg (75.0-100.0); TOTAL HEMOGLOBIN 15.7 g/dL (13.5-18.0)
[2024-08-02] MEDS: Sodium Chloride 0.9% 500 ML IV ONE (10:57)
[2024-08-02 10:58] LABS: BASOPHILS ABSOLUTE AUTO 0.06 K/uL (0.00-0.10); BASOPHILS PERCENT AUTO 0.7 % (0.1-1.3); EOSINOPHILS ABSOLUTE AUTO 0.42 K/uL (0.00-0.40); EOSINOPHILS PERCENT AUTO 5.2 % (0.0-5.4); HEMATOCRIT 45.5 % (38.4-49.7); HEMOGLOBIN 15.8 g/dL (12.9-16.9); IMMATURE GRAN ABSOLUTE AUTO 0.04 K/uL (0.00-0.23); IMMATURE GRAN PERCENT AUTO 0.5 % (0.0-0.7); LYMPHOCYTES ABSOLUTE AUTO 1.56 K/uL (0.8-3.3); LYMPHOCYTES PERCENT AUTO 19.2 % (11.4-47.7); MEAN CORPUSCULAR HEMOGLOBIN 31.2 pg (31.6-35.5); MEAN CORPUSCULAR HGB CONC 34.7 g/dL (31.6-35.5); MEAN CORPUSCULAR VOLUME 89.7 fL (81.4-99.0); MONOCYTES ABSOLUTE AUTO 0.63 K/uL (0.20-0.90); MONOCYTES PERCENT AUTO 7.8 % (3.3-12.6); NEUTROPHILS ABSOLUTE AUTO 5.41 K/uL (1.0-7.6); NEUTROPHILS PERCENT AUTO 66.6 % (40.0-78.1); PLATELET COUNT,PLT 243 K/uL (130-375); RED BLOOD CELL COUNT 5.07 M/uL (4.14-5.76); WHITE BLOOD CELL COUNT,WBC 8.1 K/uL (3.2-11.0)
[2024-08-02] MEDS: methylPREDNISolone Sodium Succinate 125 MG/2 ML SDV IVPUSH ONE (10:58)
[2024-08-02] MEDS: Magnesium Sulf/Wat 2 GM/50 mL 2 GM in Premix Bag 1 BAG IV ONE (10:58)
[2024-08-02] MEDS: Albuterol/Ipratropium 3.0-0.5 MG/3 ML Neb Soln NEB ONE (11:02)
[2024-08-02 11:28] LABS: A/G RATIO 0.9 (1.2-2.2); ALANINE AMINOTRANSFERASE,ALT 17 U/L (12-78); ALBUMIN 3.7 g/dL (3.4-5.0); ALKALINE PHOSPHATASE 113 U/L (46-116); ANION GAP 10.7 mmol/L (5.0-14.0); ASPARTATE AMNIOTRANSFERASE,AST 13 U/L (15-37); BILIRUBIN TOTAL 0.5 mg/dL (0.2-1.0); BLOOD UREA NITROGEN,BUN 46 mg/dL (7-18); CALCIUM 9.6 mg/dL (8.5-10.1); CARBON DIOXIDE,CO2 27 mmol/L (21-32); CHLORIDE,CL 102 mmol/L (100-108); CREATININE 2.6 mg/dL (0.8-1.3); EST CRCL DRUG DOSING (CG) 25.74 mL/min; ESTIMATED GFR 25 mL/min (>60); GLUCOSE RANDOM 112 mg/dL (74-106); POTASSIUM,K 3.9 mmol/L (3.6-5.2); PRO B-TYPE NATRIUR PEPT,BNPPRO 101 pg/mL (5-125); PROTEIN TOTAL,TP 7.8 g/dL (6.4-8.2); SODIUM,NA 140 mmol/L (140-148)
[2024-08-02] MEDS ORDERED: Azithromycin 1,000 MG in Sodium Chloride 0.9% 500 ML IV ONE (12:11)
[2024-08-02] MEDS: Azithromycin 500 MG in Sodium Chloride 0.9% 250 ML IV ONE (12:42)
[2024-08-02 14:24] VITALS: BP 146/80; PULSE 88
== END 2024-08-02 14:15 | disposition home or self-care (01) ==
LOC: JP.ED 09:56
DX: J44.1 Chronic obstructive pulmonary disease with (acute) exacerbation (principal); F17.210 Nicotine dependence, cigarettes, uncomplicated; Z90.49 Acquired absence of other specified parts of digestive tract; Z88.8 Allergy status to other drugs, medicaments and biological substances; Z88.5 Allergy status to narcotic agent; Z79.899 Other long term (current) drug therapy
CPT/HCPCS: 36415; 36600; 71045; 80053; 82803; 83605; 83880; 84484; 85025; 87428; 93005; 93010; 94640; 96365; 96366; 96367; 96375; 99284; 99285; J0456; J2919; J3475; J7030; J7620; A9270-GY